=== PATIENT | female | born 1980 | race Caucasian/White ===

== ENCOUNTER → 2023-05-29 | Outpatient (CLI) | payer OTHER ==
--- NOTE | 2023-05-30 16:59 | MM ---
Reason for Exam: Screening (asymptomatic). Baseline mammogram. Patient History: Menarche at age 13. First Full-Term at age 23. Premenopausal. Patient has history of breast feeding. Maternal aunt had breast cancer at or over age 50. Maternal aunt had breast cancer at or over age 50. Risk Values: Coral 5 year model risk: 0.5%. NCI Lifetime model risk: 9.9%. Prior Study Comparison: Patient's first Mammogram. Tissue Density: There are scattered fibroglandular densities. Findings: Analyzed By CAD. A couple areas of asymmetric density within the left breast on the CC view anterior depth, one located medially and the other area located laterally. This could represent superimposition shadow but further evaluation is recommended. No priors are available to determine chronicity. Otherwise, no discrete abnormality is seen. Overall Assessment: Incomplete: need additional imaging evaluation, BI-RAD 0 Management: Special View Mammogram of the left breast. Diagnostic Breast Ultrasound of the left breast. Additional views left breast to include spot 3-D CC, 3-D CC rolled, spot 3-D MLO, and 3-D lateral views. Targeted left breast ultrasound if any persisting abnormality. Electronically signed and approved by: Oni Cheung M.D. Radiologist
== END | disposition home or self-care (01) ==
LOC: RADMAMWWP 08:01
PROVIDERS: ATTEND Family Medicine
DX: Z12.31 Encounter for screening mammogram for malignant neoplasm of breast (principal); Z80.3 Family history of malignant neoplasm of breast
CPT/HCPCS: 77063; 77067